=== PATIENT | male | born 1955 | race Hispanic/Latino ===

== ENCOUNTER 2019-05-29 07:10 | Inpatient (IN) | payer OTHER ==
[~2019-05-29] VITALS: Ht 160 cm; Wt 81.6 kg
[2019-05-29] MEDS ORDERED: KETOROLAC TROMETHAMINE 30MG/ML ONE (07:46)
[2019-05-29] MEDS ORDERED: ONDANSETRON HCL 4 MG/2 ML VIAL ONE (07:47)
[2019-05-29] MEDS ORDERED: SODIUM CHLORIDE 0.9% 1000ML 1,000 ML IV ONE (07:47)
[2019-05-29 08:22] LABS: BASOPHILS % (AUTO) 0.8 % (0.0-5.0); EOSINOPHILS % (AUTO) 3.3 % (0.0-8.0); HEMATOCRIT 42.7 % (42-54); LYMPHOCYTES % (AUTO) 19.1 % (21.0-51.0); MEAN CORPUSCULAR HEMOGLOBIN 30.9 pg (27.0-33.0); MEAN CORPUSCULAR HGB CONC 34.1 g/dL (32.0-36.0); MEAN CORPUSCULAR VOLUME 90.6 fL (79-99); MONOCYTES % (AUTO) 5.5 % (3.0-13.0); NEUTROPHILS % (AUTO) 71.3 % (40.0-77.0); NUCLEATED RED BLOOD CELLS 0.1 % (0.0-0.19); PLATELET COUNT (AUTO) 183 K/uL (130-400); RED BLOOD CELL COUNT(AUTO) 4.72 MIL/uL (4.50-6.20); RED CELL DISTRIBUTION WIDTH 13.7 % (11.0-15.5)
[2019-05-29 08:30] LABS: CREATININE 0.9 mg/dL (0.5-1.5); POTASSIUM 3.8 mmol/L (3.5-5.1)
[2019-05-29 08:35] LABS: ALBUMIN 2.7 g/dL (3.5-5.0); AMPHET/METH SCREEN,URINE NEGATIVE (NEGATIVE); BARBITURATE SCREEN, URINE NEGATIVE (NEGATIVE); BENZODIAZEPINES SCREEN,URINE NEGATIVE (NEGATIVE); BILIRUBIN,TOTAL 0.5 mg/dL (0.2-1.0); CANNABINOID SCREEN,URINE NEGATIVE (NEGATIVE); COCAINE SCREEN,URINE POSITIVE (NEGATIVE); CRP QUANTITATIVE 16.5 mg/L (0.00-9.0); OPIATE SCREEN,URINE NEGATIVE (NEGATIVE); PHENCYCLIDINE SCREEN,URINE NEGATIVE (NEGATIVE); TOTAL PROTEIN, SERUM 7.4 g/dL (6.0-8.3)
[2019-05-29] MEDS ORDERED: ACETAMINOPHEN EXTRA STRENGTH 500 MG TABLET ONE (09:45)
[2019-05-29] MEDS ORDERED: ZOSYN 3.375GM+NS 50ML 50 ML IV ONE (09:45)
[2019-05-29] MEDS ORDERED: ACETAMINOPHEN 325 MG TAB PO PRN (10:15)
[2019-05-29] MEDS ORDERED: ONDANSETRON HCL 4 MG/2 ML VIAL IV PRN (10:15)
[2019-05-29] MEDS ORDERED: VANCOMYCIN 1GM+NS 250ML 250 ML IV SCH (10:15)
[2019-05-29] MEDS ORDERED: LACTULOSE 20 GM/30 ML UDCUP PO PRN (10:15)
[2019-05-29] MEDS ORDERED: VANCOMYCIN PROTOCOL PER PHARMACY IV SCH (10:45)
[2019-05-29 11:24] LABS: ERYTHROCYTE SEDIMENTATION RATE 32 MM/HR (0-20)
[2019-05-29] MEDS: ZOSYN 3.375GM+NS 50ML 50 ML IV SCH ×2 (13:00→23:29)
[2019-05-29] MEDS ORDERED: DIPH,PERTUSS(ACELL),TET VAC/PF 0.5 ML VIAL IM ONE (16:30)
[2019-05-29 16:40] VITALS: BP 148/90
--- NOTE | 2019-05-29 16:40 | NUR ---
ER ADMIT TO ROOM 323.AWAKE, SKIN WARM, SALINE LOCK IN PLACE TO RT. AC. HAS A DRESSING IN PLACE TO RT. FOOT..GIVEN VANCO IN ER AND NOW HAS ZOSYN INFUSING. SEVERAL CONSULTS PENDING AND A CALL PLACED TO DR. BRAN AND DR. HAYNES. TO SEE REGARDING PLACEMENT. AT THIS TIME NOT TO CO-OPERATIVE AND WANTS TO SLEEP
[2019-05-29 20:00] VITALS: BP 142/74
[2019-05-29] MEDS ORDERED: FAMOTIDINE 20MG TAB 20 MG TAB PO SCH (21:00)
[2019-05-29] MEDS ORDERED: COMPOUND IV REFRIGERATED 1 EACH IVSOLN MISC PRN (21:30)
[2019-05-29] MEDS ORDERED: RISPERIDONE 1 MG TABLET ONE (23:03)
[2019-05-29] MEDS: FAMOTIDINE 20MG TAB 20 MG TAB PO SCH (23:11)
[2019-05-29] MEDS: VANCOMYCIN 1.25 GM in SODIUM CHLORIDE 0.9% 250 ML IV SCH (23:14)
[2019-05-29 23:52] VITALS: BP 145/86
[2019-05-30] MEDS ORDERED: RISPERIDONE 1 MG TABLET PO ONE
[2019-05-30] MEDS ORDERED: MORPHINE SULFATE 5 MG/ML VIAL IV ONE (03:45)
[2019-05-30] MEDS: ZOSYN 3.375GM+NS 50ML 50 ML IV SCH ×3 (05:00→20:34)
[2019-05-30 05:07] LABS: BASOPHILS % (AUTO) 0.7 % (0.0-5.0); EOSINOPHILS % (AUTO) 3.8 % (0.0-8.0); HEMATOCRIT 41.8 % (42-54); MEAN CORPUSCULAR HGB CONC 33.4 g/dL (32.0-36.0); MEAN CORPUSCULAR VOLUME 92.7 fL (79-99); NEUTROPHILS % (AUTO) 62.5 % (40.0-77.0); PLATELET COUNT (AUTO) 164 K/uL (130-400); RED BLOOD CELL COUNT(AUTO) 4.51 MIL/uL (4.50-6.20); RED CELL DISTRIBUTION WIDTH 13.5 % (11.0-15.5); WHITE BLOOD COUNT (AUTO) 5.7 K/uL (4.8-10.8)
[2019-05-30 05:16] LABS: CREATININE 1.1 mg/dL (0.5-1.5); POTASSIUM 4.1 mmol/L (3.5-5.1)
[2019-05-30 08:00] VITALS: BP 146/91
[2019-05-30] MEDS: ENOXAPARIN SODIUM 40 MG/0.4 ML SYRINGE SQ SCH (09:08)
[2019-05-30] MEDS: VANCOMYCIN 1.25 GM in SODIUM CHLORIDE 0.9% 250 ML IV SCH ×2 (09:08→20:34)
[2019-05-30] MEDS: ACETAMINOPHEN 325 MG TAB PO PRN ×2 (09:10→20:57)
[2019-05-30] MEDS: FAMOTIDINE 20MG TAB 20 MG TAB PO SCH ×2 (09:10→20:33)
[2019-05-30 11:58] VITALS: BP 145/84
[2019-05-30 16:00] VITALS: BP 136/87
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
[2019-05-30 20:00] VITALS: BP 147/96
[2019-05-30] MEDS: RISPERIDONE 1 MG TABLET PO SCH (20:33)
[2019-05-30] MEDS ORDERED: ONDANSETRON HCL 4 MG/2 ML VIAL IVP PRN (23:00)
[2019-05-30] MEDS ORDERED: MORPHINE SULFATE 4 MG/1ML SYG ONE (23:24)
[2019-05-31] VITALS (22 sets, daily range): BP systolic 112–159; BP diastolic 65–97
[2019-05-31] MEDS: ZOSYN 3.375GM+NS 50ML 50 ML IV SCH ×3 (04:29→21:33)
[2019-05-31 05:58] LABS: BASOPHILS % (AUTO) 1.3 % (0.0-5.0); EOSINOPHILS % (AUTO) 3.7 % (0.0-8.0); HEMATOCRIT 42.3 % (42-54); MEAN CORPUSCULAR HEMOGLOBIN 30.6 pg (27.0-33.0); MEAN CORPUSCULAR HGB CONC 33.7 g/dL (32.0-36.0); MEAN CORPUSCULAR VOLUME 90.9 fL (79-99); MONOCYTES % (AUTO) 6.9 % (3.0-13.0); NEUTROPHILS % (AUTO) 61.1 % (40.0-77.0); PLATELET COUNT (AUTO) 170 K/uL (130-400); RED BLOOD CELL COUNT(AUTO) 4.65 MIL/uL (4.50-6.20); RED CELL DISTRIBUTION WIDTH 13.9 % (11.0-15.5); WHITE BLOOD COUNT (AUTO) 5.9 K/uL (4.8-10.8)
[2019-05-31] MEDS ORDERED: LIDOCAINE HCL 1% 20 ML VIAL ONE (06:02)
[2019-05-31] MEDS ORDERED: BUPIVACAINE/PF 0.5% 30ML VIAL ONE (06:02)
[2019-05-31] MEDS ORDERED: LACTATED RINGERS 1000ML 1,000 ML IV ONE (06:10)
[2019-05-31 06:12] LABS: CREATININE 0.8 mg/dL (0.5-1.5); POTASSIUM 3.9 mmol/L (3.5-5.1)
[2019-05-31] MEDS ORDERED: MIDAZOLAM HCL 1 MG/ML 2ML VIAL ONE ×2 (06:33→06:48)
[2019-05-31] MEDS ORDERED: LIDOCAINE PF 2% 5ML ABBOJECT ONE (06:33)
[2019-05-31] MEDS ORDERED: FENTANYL CITRATE PF 50 MCG/1 ML 2ML VIAL ONE (06:34)
[2019-05-31] MEDS ORDERED: PROPOFOL 10 MG/ML 20ML VIAL IV ONE (06:34)
[2019-05-31] MEDS ORDERED: ONDANSETRON HCL 4 MG/2 ML VIAL ONE (07:00)
[2019-05-31] MEDS: ENOXAPARIN SODIUM 40 MG/0.4 ML SYRINGE SQ SCH (09:00)
[2019-05-31] MEDS: VANCOMYCIN 1.25 GM in SODIUM CHLORIDE 0.9% 250 ML IV SCH ×2 (09:58→21:35)
[2019-05-31] MEDS: FAMOTIDINE 20MG TAB 20 MG TAB PO SCH ×2 (09:58→21:33)
[2019-05-31] MEDS: RISPERIDONE 1 MG TABLET PO SCH (21:33)
[2019-05-31] MEDS: MORPHINE SULFATE 4 MG/1ML SYG IV PRN (21:50)
[2019-06-01] VITALS: BP 121/78
[2019-06-01 04:00] VITALS: BP 147/93
[2019-06-01] MEDS: ZOSYN 3.375GM+NS 50ML 50 ML IV SCH ×3 (04:44→20:08)
[2019-06-01 06:25] LABS: BASOPHILS % (AUTO) 0.9 % (0.0-5.0); EOSINOPHILS % (AUTO) 3.2 % (0.0-8.0); HEMATOCRIT 42.6 % (42-54); LYMPHOCYTES % (AUTO) 23.2 % (21.0-51.0); MEAN CORPUSCULAR HEMOGLOBIN 30.6 pg (27.0-33.0); MEAN CORPUSCULAR HGB CONC 33.3 g/dL (32.0-36.0); MONOCYTES % (AUTO) 6.5 % (3.0-13.0); NEUTROPHILS % (AUTO) 66.2 % (40.0-77.0); PLATELET COUNT (AUTO) 181 K/uL (130-400); RED BLOOD CELL COUNT(AUTO) 4.63 MIL/uL (4.50-6.20); RED CELL DISTRIBUTION WIDTH 13.6 % (11.0-15.5); WHITE BLOOD COUNT (AUTO) 6.6 K/uL (4.8-10.8)
[2019-06-01 06:31] LABS: POTASSIUM 4.3 mmol/L (3.5-5.1)
[2019-06-01 08:00] VITALS: BP 145/89
[2019-06-01] MEDS: FAMOTIDINE 20MG TAB 20 MG TAB PO SCH ×2 (08:31→20:09)
[2019-06-01] MEDS: VANCOMYCIN 1.25 GM in SODIUM CHLORIDE 0.9% 250 ML IV SCH (08:32)
[2019-06-01] MEDS: ENOXAPARIN SODIUM 40 MG/0.4 ML SYRINGE SQ SCH (08:32)
[2019-06-01 11:19] VITALS: BP 132/84
[2019-06-01] MEDS: MORPHINE SULFATE 4 MG/1ML SYG IV PRN ×2 (12:22→20:10)
[2019-06-01 16:00] VITALS: BP 131/84
[2019-06-01 20:03] VITALS: BP 124/71
[2019-06-01] MEDS: RISPERIDONE 1 MG TABLET PO SCH (20:09)
[2019-06-02] VITALS (8 sets, daily range): BP systolic 113–143; BP diastolic 65–82
[2019-06-02] MEDS: ZOSYN 3.375GM+NS 50ML 50 ML IV SCH ×3 (04:51→20:25)
[2019-06-02 06:42] LABS: BASOPHILS % (AUTO) 0.9 % (0.0-5.0); EOSINOPHILS % (AUTO) 3.5 % (0.0-8.0); LYMPHOCYTES % (AUTO) 24.8 % (21.0-51.0); MEAN CORPUSCULAR HEMOGLOBIN 30.8 pg (27.0-33.0); MEAN CORPUSCULAR HGB CONC 33.9 g/dL (32.0-36.0); MEAN CORPUSCULAR VOLUME 90.9 fL (79-99); MONOCYTES % (AUTO) 7.8 % (3.0-13.0); PLATELET COUNT (AUTO) 164 K/uL (130-400); RED BLOOD CELL COUNT(AUTO) 4.62 MIL/uL (4.50-6.20); RED CELL DISTRIBUTION WIDTH 13.4 % (11.0-15.5); WHITE BLOOD COUNT (AUTO) 5.7 K/uL (4.8-10.8)
[2019-06-02 06:54] LABS: POTASSIUM 3.8 mmol/L (3.5-5.1)
[2019-06-02] MEDS: ENOXAPARIN SODIUM 40 MG/0.4 ML SYRINGE SQ SCH (10:30)
[2019-06-02] MEDS: FAMOTIDINE 20MG TAB 20 MG TAB PO SCH ×2 (10:30→20:25)
[2019-06-02] MEDS: METRONIDAZOLE 500 MG TABLET PO SCH ×2 (11:54→18:52)
[2019-06-02] MEDS: RISPERIDONE 1 MG TABLET PO SCH (20:25)
[2019-06-02] MEDS: HYDROCODONE/ACETAMINOPHEN 5/325 MG TAB PO PRN (20:33)
[2019-06-03] MEDS: METRONIDAZOLE 500 MG TABLET PO SCH ×3 (02:40→18:59)
[2019-06-03 03:20] VITALS: BP 138/74
[2019-06-03] MEDS: ZOSYN 3.375GM+NS 50ML 50 ML IV SCH ×3 (04:15→20:42)
[2019-06-03 04:57] LABS: BASOPHILS % (AUTO) 0.8 % (0.0-5.0); EOSINOPHILS % (AUTO) 3.6 % (0.0-8.0); HEMATOCRIT 45.2 % (42-54); LYMPHOCYTES % (AUTO) 26.7 % (21.0-51.0); MEAN CORPUSCULAR HEMOGLOBIN 30.7 pg (27.0-33.0); MEAN CORPUSCULAR HGB CONC 33.3 g/dL (32.0-36.0); MEAN CORPUSCULAR VOLUME 92.2 fL (79-99); MONOCYTES % (AUTO) 7.7 % (3.0-13.0); NEUTROPHILS % (AUTO) 61.2 % (40.0-77.0); PLATELET COUNT (AUTO) 172 K/uL (130-400); RED BLOOD CELL COUNT(AUTO) 4.91 MIL/uL (4.50-6.20); RED CELL DISTRIBUTION WIDTH 13.6 % (11.0-15.5); WHITE BLOOD COUNT (AUTO) 6.1 K/uL (4.8-10.8)
[2019-06-03 05:09] LABS: CREATININE 0.9 mg/dL (0.5-1.5); POTASSIUM 4.1 mmol/L (3.5-5.1)
[2019-06-03 08:00] VITALS: BP 129/84
[2019-06-03] MEDS: FAMOTIDINE 20MG TAB 20 MG TAB PO SCH ×2 (08:51→20:42)
[2019-06-03] MEDS: ENOXAPARIN SODIUM 40 MG/0.4 ML SYRINGE SQ SCH (08:52)
[2019-06-03] MEDS: HYDROCODONE/ACETAMINOPHEN 5/325 MG TAB PO PRN ×2 (08:52→20:44)
[2019-06-03 12:00] VITALS: BP 140/81
[2019-06-03 16:00] VITALS: BP 119/70
--- NOTE | 2019-06-03 18:16 | NUR ---
Nutrition Intervention: Nutrition screen based on LOS x 5 days. Pt. S/P right foot cutting of skin soft tissue with removal infected(05/31/19). Pt. on Heart Healthy diet with good p.o. intake, per pt. Spoke with pt. regarding protein supplementation and pt. agreed to try. Labs reviewed(Alb 2.7). SR-18, right foot plantar debridement. BMI: 31.9, overweight for age. Recommendations: 1) Rec. 30ml ProMod TID with meals. 2) Rec. 500mg Vit C BID and 220mg Zn Sulfate QD to help promote wound healing. 3) Continue to monitor pt's nutritional status. 4) Consult RD as nutrition concerns arise. Addendum: 06/03/19 at [address] Amended: Links added.
[2019-06-03 20:00] VITALS: BP 111/71
[2019-06-03] MEDS: RISPERIDONE 1 MG TABLET PO SCH (20:42)
[2019-06-03 23:25] VITALS: BP 122/82
[2019-06-04] MEDS: METRONIDAZOLE 500 MG TABLET PO SCH ×3 (02:09→18:35)
[2019-06-04 04:00] VITALS: BP 126/79
[2019-06-04] MEDS: ZOSYN 3.375GM+NS 50ML 50 ML IV SCH ×3 (05:07→20:22)
[2019-06-04 05:11] LABS: BASOPHILS % (AUTO) 0.8 % (0.0-5.0); EOSINOPHILS % (AUTO) 2.9 % (0.0-8.0); HEMATOCRIT 45.1 % (42-54); MEAN CORPUSCULAR HEMOGLOBIN 30.9 pg (27.0-33.0); MEAN CORPUSCULAR HGB CONC 33.7 g/dL (32.0-36.0); MEAN CORPUSCULAR VOLUME 91.8 fL (79-99); MONOCYTES % (AUTO) 8.6 % (3.0-13.0); NEUTROPHILS % (AUTO) 63.7 % (40.0-77.0); NUCLEATED RED BLOOD CELLS 0.1 % (0.0-0.19); PLATELET COUNT (AUTO) 161 K/uL (130-400); RED BLOOD CELL COUNT(AUTO) 4.92 MIL/uL (4.50-6.20); RED CELL DISTRIBUTION WIDTH 13.6 % (11.0-15.5); WHITE BLOOD COUNT (AUTO) 6.3 K/uL (4.8-10.8)
[2019-06-04 05:25] LABS: CREATININE 0.9 mg/dL (0.5-1.5); POTASSIUM 3.9 mmol/L (3.5-5.1)
--- NOTE | 2019-06-04 06:10 | NUR ---
DONN SUMMERS SEEN AND EXAMINED PT WITH THE FOLLOWING ORDERS: 1. RESUME XARELTO 2. CXR - 2VIEW AND IF THERE'S FLUID , HAVE IR FOR THORACENTESIS. Addendum: 06/04/19 at 0619 by PJ DEWITT RN RN WRONG ENTRY. THIS NOTE IS FOR DIFFERENT PATIENT.
[2019-06-04] MEDS: SILVER SULFADIAZINE CREAM 400 GM TP SCH (08:47)
[2019-06-04] MEDS: ENOXAPARIN SODIUM 40 MG/0.4 ML SYRINGE SQ SCH (08:47)
[2019-06-04] MEDS: FAMOTIDINE 20MG TAB 20 MG TAB PO SCH ×2 (08:47→20:23)
[2019-06-04] MEDS: HYDROCODONE/ACETAMINOPHEN 5/325 MG TAB PO PRN ×2 (09:14→20:30)
[2019-06-04 09:53] VITALS: BP 128/76
[2019-06-04 12:00] VITALS: BP 127/77
[2019-06-04 16:00] VITALS: BP 125/90
[2019-06-04 19:00] VITALS: BP 124/76
[2019-06-04] MEDS: RISPERIDONE 1 MG TABLET PO SCH (20:23)
[2019-06-04 23:20] VITALS: BP 128/69
[2019-06-05] MEDS: METRONIDAZOLE 500 MG TABLET PO SCH ×3 (02:49→19:38)
[2019-06-05 03:28] VITALS: BP 119/77
[2019-06-05] MEDS: ZOSYN 3.375GM+NS 50ML 50 ML IV SCH ×3 (04:15→20:08)
[2019-06-05 08:00] VITALS: BP 123/84
[2019-06-05] MEDS: FAMOTIDINE 20MG TAB 20 MG TAB PO SCH ×2 (09:55→20:08)
[2019-06-05] MEDS: ENOXAPARIN SODIUM 40 MG/0.4 ML SYRINGE SQ SCH (09:55)
[2019-06-05] MEDS: SILVER SULFADIAZINE CREAM 400 GM TP SCH (09:56)
[2019-06-05] MEDS: HYDROCODONE/ACETAMINOPHEN 5/325 MG TAB PO PRN ×2 (10:01→20:10)
--- NOTE | 2019-06-05 11:30 | NUR ---
FAMILY SUPPORT PT THIS RONEL PEARCE SUPPORT PROVIDED AT FAMILY REQUEST, ABHINAV PROVIDED EXCUSED FORM X8 FOR FAMILY MEMBERS Addendum: 06/05/19 at 1441 by YOUNG STAFFORD RN CM Amended: Links added. Addendum: 06/05/19 at 1443 by YOUNG STAFFORD RN CM WRONG PT
--- NOTE | 2019-06-05 11:31 | NUR ---
NOTES AT 1130 ON WRONG PT
[2019-06-05 11:52] VITALS: BP 132/86
--- NOTE | 2019-06-05 14:43 | NUR ---
IDENTICIATION CARD- COPY RECD COPY RECD FORM [facility]- ADVISED [facility]- DANIELLE TOLENTINO- HE WILL CHECK TO SEE IF PT HAS BENEFITS, ETC WILL PROCEED WITH POSSIBLE PLACEMENT BASED ON RESULTS OF BENEFIT SEARCH
[2019-06-05 16:00] VITALS: BP 102/51
--- NOTE | 2019-06-05 18:48 | NUR ---
Pt in the shower, wound dressing to be done after shower.
[2019-06-05 19:10] VITALS: BP 116/77
[2019-06-05] MEDS: RISPERIDONE 1 MG TABLET PO SCH (20:08)
[2019-06-05 23:10] VITALS: BP 105/67
[2019-06-06 03:15] VITALS: BP 92/62
[2019-06-06] MEDS: METRONIDAZOLE 500 MG TABLET PO SCH ×2 (04:19→10:06)
[2019-06-06] MEDS: ZOSYN 3.375GM+NS 50ML 50 ML IV SCH ×2 (06:13→13:11)
[2019-06-06 08:02] VITALS: BP 107/67
[2019-06-06] MEDS: FAMOTIDINE 20MG TAB 20 MG TAB PO SCH (10:05)
[2019-06-06] MEDS: SILVER SULFADIAZINE CREAM 400 GM TP SCH (10:06)
[2019-06-06] MEDS: ENOXAPARIN SODIUM 40 MG/0.4 ML SYRINGE SQ SCH (10:06)
[2019-06-06] MEDS: HYDROCODONE/ACETAMINOPHEN 5/325 MG TAB PO PRN (10:08)
[2019-06-06] MEDS ORDERED: NYSTATIN-TRIAMCINOLONE CREAM 15 GM TP SCH (11:00)
[2019-06-06 11:44] VITALS: BP 125/74
[2019-06-06 15:56] VITALS: BP 116/78
--- NOTE | 2019-06-06 20:09 | NUR ---
Pt Left AMA Pt admitted with right foot ulcer and under treatment and management by the hospitalist group, pt hospital stay day # 8 AOX 3, left AMA on 06/06/19 @ 1905, Pt currently under psych consultation and management, Psychiatrist on the case called for clearance, he recommends calling [facility] for evaluation and placement since pt is homeless, as at this time pt is off the floor with his belongings and crutches provided, pt respected for his wishes, charge nurse notified, house aware, security called but pt walked off the floor.
== END 2019-06-06 19:40 | disposition left against medical advice (07) | DRG 854 ==
LOC: EDH 07:10 → EDHIP 07:11 → 3DH 16:40
PROVIDERS: ADMIT Family Medicine; ATTEND Family Medicine
PROC: 0JBQ0ZZ Excision of Right Foot Subcutaneous Tissue and Fascia, Open Approach (ICD-10-PCS; principal; 2019-05-31 06:30)
DX: A41.9 Sepsis, unspecified organism (principal); L03.115 Cellulitis of right lower limb; M86.9 Osteomyelitis, unspecified; L02.611 Cutaneous abscess of right foot; G93.40 Encephalopathy, unspecified; E11.621 Type 2 diabetes mellitus with foot ulcer; L97.519 Non-pressure chronic ulcer of other part of right foot with unspecified severity; S92.351A Displaced fracture of fifth metatarsal bone, right foot, initial encounter for closed fracture; F14.10 Cocaine abuse, uncomplicated; B96.4 Proteus (mirabilis) (morganii) as the cause of diseases classified elsewhere; E11.628 Type 2 diabetes mellitus with other skin complications; E11.69 Type 2 diabetes mellitus with other specified complication; E66.9 Obesity, unspecified; Z68.31 Body mass index [BMI] 31.0-31.9, adult; F60.7 Dependent personality disorder; I10 Essential (primary) hypertension; Z59.0 Homelessness; Z72.811 Adult antisocial behavior; F32.9 Major depressive disorder, single episode, unspecified; F41.9 Anxiety disorder, unspecified; F19.10 Other psychoactive substance abuse, uncomplicated; X58.XXXA Exposure to other specified factors, initial encounter; Y93.89 Activity, other specified; Y92.89 Other specified places as the place of occurrence of the external cause; Y99.8 Other external cause status
CPT/HCPCS: 36415; 73630; 73718; 80048; 80053; 80202; 80305; 83605; 84145; 85025; 85651; 86140; 87040; 87070; 87076; 87077; 87186; 90715; 93925; 93971; 97039; G0378; J1650; J1885; J2001; J2250; J2270; J2405; J2543; J2704; J3010; J3370; J3490; J7030; J7120